=== PATIENT | female | born 1960 | race African-American/Black ===

== ENCOUNTER → 2017-01-28 | Outpatient (CLI) | payer OTHER ==
[~2017-01-28] MED LIST: AMLODIPINE BESY10 MG; APAP650 PO; ARANESP 6060 MCG/0.1 SC; CALCIUM 600 +1 EAC1; CIPRO250 M1 OR; CLONIDINE HCL0.2 M2 PO; CLONIDINE0.1 PO; COMBIPATCH 0.01 EACH TRANSDERM; COZAAR PO; COZAAR100 MG PO; CYMBALTA60 MG PO; DIFLUCAN150 MG PO; DILAUDID2 M1 OR; DILTIAZEM ER120 M1 PO; FLOVENT HFA 1110 MCG INH; FOLIC ACID1 MG PO; GLYCOLAX POWDER17 G1 PO; GLYCOLAX17 GM PO; HYDROCODON-ACE1 EAC7 PO; HYDROXYCHLOROQ200 M1 PO; IBUPROFEN 400400 M1 PO; IBUPROFEN 800800 M1 PO; IBUPROFEN200 M2 PO; IMURAN 50MG TAB50 M1 PO; IRON; IRON PO; JANUVIA25 MG PO; LASIX 20 MG TAB20 MG PO; LEVAQUIN 500 M500 MG PO; LEVEMIR SC; LYRICA 50 MG50 MG PO; MACROBID 100 M100 M1 PO; MINIPRIN81 MG PO; MULTI VITAMIN1 EACH PO; NEURONTIN 400400 M1 PO; NEURONTIN800 MG PO; NEXIUM 40 MG CA40 M1 PO; NEXIUM40 MG PO; NITROFURANTOIN100 MG PO; NORCO 5-325 TA1 EACH PO; NORTRIPTYLINE H25 M3 PO; NORTRIPTYLINE H50 M3 GT; NORVASC10 MG PO; NOVOLOG100 UNIT/1 SC; NUCYNTA100 MG PO; OMEPRAZOLE40 MG PO; OXYCODON-ACETA1 EAC1 PO; STOOL SOFTENER1 EAC2 PO; TORSEMIDE20 MG PO; ULTRAM 50MG TAB50 MG PO; VITAMIN D1000 UNI1 PO; ZANTAC 150MG T150 M1 PO
== END ==
LOC: SLEEPLAB 15:20
DX: G47.33 Obstructive sleep apnea (adult) (pediatric) (principal)

== ENCOUNTER 2017-08-27 04:34 | Inpatient (IN) | payer OTHER ==
[2017-08-27] VITALS (10 sets, daily range): BP systolic 116–220; BP diastolic 67–105
[~2017-08-27] VITALS: Ht 162.6 cm; Wt 72.1 kg
--- NOTE | ~2017-08-27 | P ---
[facility] [place] [address] PROCEDURE REPORT Name: OLAMIDE TAVAREZ Room #: 358-P [facility] IN M.R.#: [id number] Admission: 08/27/17 Attend Phys: Yonas Dixon MD Discharge: Date of : 56 Report #: [id number] THIS REPORT FOR: //name// CC: Luis F Silver MD BRIEF HISTORY: The patient is a 57-year-old woman who presented to [facility] with mental status changes and fatigue with multiple health problems including lupus, prior bleeding gastric ulcers, diabetes, Sjogren's and sleep apnea. She was found to have a hemoglobin of 6 on admission. She has also had a Sandeep-en-Y gastric bypass surgery. In addition, she is on azathioprine for lupus. She also complains of upper abdominal pain, and she reports reflux symptoms. PREOPERATIVE DIAGNOSES: Anemia, abdominal pain and reflux symptoms. POSTOPERATIVE DIAGNOSES: Gastric changes consistent with a previous Sandeep-en-Y gastric bypass surgery with normal mucosa. MEDICATIONS: Deep sedation with propofol per Anesthesia. SPECIMEN: Small bowel biopsies to rule out celiac disease. ESTIMATED BLOOD LOSS: 3 mL. PROCEDURE: EGD with biopsy. FINDINGS: Prior to propofol sedation, procedure of upper endoscopy discussed with the patient as well as potential risks and its complications. She indicates she understands and desires to proceed. DESCRIPTION OF PROCEDURE: With the patient in left lateral decubitus position, a Olympus video endoscope was inserted in the cervical esophagus under direct vision without difficulty. Examination of this organ through its entire length revealed normal esophageal mucosa down the squamocolumnar junction. She reports reflux and burning symptoms, but the squamocolumnar junction is unremarkable. There is no evidence of ulcers, erosions or Rodríguez mucosa. A significant hiatus hernia was not seen. The scope was advanced into the stomach, and there was a very small gastric pouch in view of her previous Sandeep-en-Y gastric bypass surgery. The mucosa of the pouch was normal. No ulcers or bleeding lesions were seen. I was able to retroflex the scope in the pouch and no additional abnormalities were seen. The surgical anastomosis was unremarkable. The small bowel was entered and mucosa was normal. No evidence of bleeding lesions. The scope was advanced its full length into the jejunal limb and no abnormalities were seen. We could not identify the Sandeep-en-Y anastomosis. At that point, [address] [address] PROCEDURE REPORT Name: TAVAREZOLAMIDE Room #: 358-P [facility] IN ..#: [id number] Admission: 08/27/17 Attend Phys: Yonas Dixon MD Discharge: Date of : 56 Report #: [id number] scope was slowly withdrawn and careful circumferential views were obtained. Multiple small bowel biopsies obtained to evaluate for celiac disease. Scope was withdrawn. The patient tolerated the procedure well. DISPOSITION: The patient with previous gastric bypass surgery and above-mentioned symptoms. I do not find evidence of mucosal disease or esophagitis. She reports with the omeprazole, she generally does well and denies reflux and burning symptoms while on omeprazole. Therefore, continue PPI. As far as her anemia, she received 2 units of blood, hemoglobin today is 13.6. In retrospect, drop in hemoglobin may have been a lab error or draw error. She denies having any black stools or bloody stools. She had a colonoscopy in 11/2013. At this point, bleeding does not appear to be an issue, so I do not see the need to pursue further endoscopic examination at this point in time. If there is further evidence of bleeding, proceeding with colonoscopy would be the next step. Also, we will follow up on thiopurine metabolite levels in view of her use of Imuran. If she has continued burning symptoms while on the PPI, addition of sucralfate for nonacidic component of reflux may be helpful. <ELECTRONICALLY SIGNED> By: Zak Guillory MD 08/28/17 1710 1252 1330 Zak Guillory MD /nt
--- NOTE | ~2017-08-27 | PATH ---
[facility] [place] [address] [address] PATHOLOGY RPT PROCEDURE Name: OLAMIDE ENGLISH Room #: 358-P DIS IN M.R.#: [id number] Admission: 08/27/17 Date of : 56 Discharge: 08/30/17 Report #: [id number] Path Case #: [id number] [facility] Accession Number: [id number] . 01 Material submitted: . SMALL BOWEL BX R/O CELIAC . 01 Clinical history: . Pre-Op DX: GERD, Hx of gastric ulcers, anemia Post-OP DX: Gastric changes consistent with gastric bypass . 02 Diagnosis: Small bowel mucosa, small bowel rule out celiac, endoscopic biopsy: - No diagnostic abnormalities present. - Negative for villous blunting or increase in intraepithelial lymphocytes. (IUV:pit 08/30/2017) QTP/08/30/2017 . 02 Electronically signed: . Phyllis Kelly MD, Pathologist NPI- [id number] . 01 Gross description: . Received in formalin labeled "English, [place], small bowel BX, rule out celiac Re anemia," are multiple (more than 10) segments of heart soft tissue measuring 2.1 x 0.6 x 0.2 cm in aggregate dimensions. The specimen is filtered and submitted entirely in cassette A1. (TSD; 08/28/2017) TOB/TOB . 02 Pathologist provided ICD-10: K21.9 . 02 CPT . 571339 Performed at: [address], [place] [id number] MD Matt Martell MD Phone: [phone] Performed at: [address] [id number] MD Phyllis Kelly MD Phone: [phone]
--- NOTE | ~2017-08-27 | HC ---
[facility] [place] [address] CONSULTATION Name: OLAMIDE TAVAREZ Sara Room #: 358-P ADM IN M.R.#: [id number] Admission: 08/27/17 Attend Phys: Yonas Dixon MD Discharge: Date of : 56 Report #: [id number] THIS REPORT FOR: //name// CC: Yonas Bender Box REASON FOR CONSULTATION: Chronic kidney disease. REASON FOR PRESENTATION: Mental status changes, hypoglycemia. HISTORY OF PRESENT ILLNESS: A 57-year-old with past medical history of chronic kidney disease with a baseline creatinine of around 2.5. She sees Dr. Miller. She is also known to have diabetes mellitus, hypertension, lupus, prior gastric bypass surgery. She has not been feeling well and was brought to the Emergency Room because of fatigue, mental status changes and a blood sugar of 33 upon arrival. I am consulted to manage her chronic kidney disease. She was found to be anemic. From the renal perspective, the patient used to follow up with Dr. Miller in our clinic. She has a very stable chronic kidney disease for the last few years with a creatinine running around 2-2.5. For unclear reasons, her creatinine had been worsening lately. She has seen somebody in [place] and was told that her creatinine has been creeping up and that she needs to start dialysis. She tells me that she was recently started on couple of diuretics including a thiazide diuretic and Bumex. This was due to lower extremity edema. She thinks that the deterioration of her condition was related to those medications. She was told that she will need a fistula placed and she needs to start dialysis soon. When she presented yesterday, she had some issues with electrolytes. She denies nonsteroidal anti-inflammatory medications. She denies any other changes in her medications. No nausea or vomiting. Her lower extremity edema has significantly subsided. PAST MEDICAL HISTORY: 1. Chronic kidney disease with a baseline creatinine of around 2.5. 2. Diabetes mellitus. 3. SLE. 4. Obstructive sleep apnea. 5. Hypertension. 6. Peripheral neuropathy. ALLERGIES: CODEINE. SOCIAL HISTORY: No drug or alcohol abuse. FAMILY HISTORY: Autoimmune disorders and dialysis run in the family. MEDICATIONS: Currently, the patient is maintained on the followin. Hydroxychloroquine. 2. Clonidine. [address] [address] CONSULTATION Name: OLAMIDE TAVAREZ Room #: 358-P [facility] IN .R.#: [id number] Admission: 08/27/17 Attend Phys: Yonas Dixon MD Discharge: Date of : 56 Report #: [id number] 3. Carvedilol. 4. Aspirin. 5. Bumex. 6. Chlorthalidone. 7. Calcium carbonate. 8. Calcitriol. 9. Imuran. REVIEW OF SYSTEMS: GENERAL: Significant for weakness. CARDIOVASCULAR: No chest pain, no palpitation. PULMONARY: No cough or hemoptysis. GASTROINTESTINAL: Decreased p.o. intake. GENITOURINARY: No frequency, no urgency. MUSCULOSKELETAL: Occasional myalgias. NEUROLOGICAL: As per the history of present illness. PHYSICAL EXAMINATION: VITAL SIGNS: Blood pressure is markedly elevated at 231/109, temperature 36.9. HEAD AND NECK: No jugular venous distention, no bruit, no thyromegaly. CHEST: Clear to auscultation bilaterally. CARDIOVASCULAR: Regular with no rub detected. ABDOMEN: Soft, nontender. LOWER EXTREMITIES: No edema. LABORATORY VALUES: Reviewed. Hemoglobin is up to 13.7 from a value of 6. Potassium is 5.4, BUN is 45, creatinine is 3. UA is not remarkable. Head CT negative. Abdomen and pelvic CT reviewed, no acute abnormality. She does have multiple cysts on the kidneys. ASSESSMENT, IMPRESSION AND PLAN: 1. Acute kidney injury. 2. Chronic kidney disease. 3. Anemia. 4. Hyperkalemia. 5. Hypocalcemia. 6. Source of the deterioration in the patient's kidney function is not clear to us. As of this moment, I will wait for her kidney numbers to settle down. She does not have any edema and I will hold her chlorthalidone and Bumex. Electrolytes were replaced yesterday. Calcium is better. I will resume her [facility] [address] [place] [address] CONSULTATION Name: OLAMIDE TAVAREZ Sara Room #: 358-P ADM IN M.R.#: [id number] Admission: 08/27/17 Attend Phys: Yonas Dixon MD Discharge: Date of : 56 Report #: [id number] calcium and keep her on calcitriol for now Blood pressure is markedly elevated and I will make the necessary adjustments for her blood pressure medications. Continue Imuran for her lupus. Watch blood sugar. Adjust Zovirax dose to her GFR. Discontinue IV fluid. We will continue to follow along. <ELECTRONICALLY SIGNED> By: Jcarlos Grubbs MD 08/28/17923 9 9 Jcarlos Grubbs MD /nt
[2017-08-27] MEDS ORDERED: CHLORTHALIDONE25 MG PO (05:11)
[2017-08-27] MEDS ORDERED: BUMETANIDE0.25 MG/1 PO (05:13)
[2017-08-27 05:14] LABS: ABSOLUTE NEUTROPHILS 1.8 thou/uL (1.4-8.2); LYMPHOCYTES 34.5 % (24.0-44.0); WBC 3.3 thou/uL (4.0-11.0)
[2017-08-27] MEDS ORDERED: ACYCLOVIR 400400 MG PO (05:14)
[2017-08-27] MEDS ORDERED: ASPIR 8181 MG PO (05:14)
[2017-08-27] MEDS ORDERED: PERCOCET 10-321 EACH PO (05:15)
[2017-08-27 05:16] LABS: BASOPHILS 0.8 % (0.0-2.0); EOSINOPHILS 1.4 % (0.0-3.0); MCH 34.4 pg (26.0-34.0); MCHC 33.7 g/dL (28.0-37.0); MCV 102.1 fL (80.0-100.0); MONOCYTES 8.8 % (1.0-8.0); PLATELET COUNT 95 thou/uL (150-400); POLYS 54.5 % (36.0-66.0); RBC 1.75 mil/uL (4.20-5.00); RDW 13.9 % (10.5-14.5)
[2017-08-27] MEDS ORDERED: CARVEDILOL12.5 MG PO (05:16)
[2017-08-27] MEDS ORDERED: LYRICA 75 MG CA75 MG PO (05:16)
[2017-08-27 05:17] LABS: ANION GAP 8 mmol/L (7-16); BUN 44 mg/dL (7-18); CHLORIDE 114 mmol/L (98-107); CO2 21 mmol/L (21-32); CREATININE 2.5 mg/dL (0.6-1.0); GLUCOSE 63 mg/dL (74-106); SODIUM 143 mmol/L (136-145)
[2017-08-27] MEDS ORDERED: CALCITRIOL0.25 MCG PO (05:17)
[2017-08-27] MEDS ORDERED: SINGULAIR 10 MG10 MG PO (05:18)
[2017-08-27] MEDS ORDERED: NIFEDIPINE ER90 M1 PO (05:18)
[2017-08-27 05:21] LABS: HEMATOCRIT 17.9 % (37.0-47.0)
[2017-08-27 05:23] LABS: ALBUMIN 1.8 g/dL (3.4-5.0); DIRECT BILIRUBIN < 0.1 mg/dL (<0.1-0.3); LIPASE 177 U/L (73-393); SGOT 20 U/L (15-37); SGPT 16 U/L (30-65); TOTAL BILIRUBIN 0.2 mg/dL (<0.1-1.0); TOTAL PROTEIN 4.6 g/dL (6.4-8.2)
[2017-08-27 05:24] LABS: POTASSIUM 2.3 mmol/L (3.5-5.1)
[2017-08-27 05:25] LABS: CALCIUM 5.2 mg/dL (8.5-10.1)
[2017-08-27 05:57] LABS: LARGE PLATELETS OCCASIONAL; MICROCYTES 1+; PLATELET ESTIMATE DECREASED
[2017-08-27 05:58] LABS: ANISOCYTOSIS 1+; HYPOCHROMASIA 1+
[2017-08-27 07:11] LABS: URINE BILIRUBIN NEGATIVE (Negative); URINE BLOOD NEGATIVE (Negative); URINE CLARITY CLEAR; URINE COLOR YELLOW; URINE GLUCOSE-RANDOM* NEGATIVE (Negative); URINE KETONES NEGATIVE (Negative); URINE LEUKOCYTES-REFLEX TRACE (Negative); URINE NITRITE-REFLEX NEGATIVE (Negative); URINE PROTEIN (DIPSTICK) NEGATIVE (Negative); URINE SPECIFIC GRAVITY <= 1.005 (1.005-1.035); URINE UROBILINOGEN 0.2 E.U./dl (0.2-1.0)
[2017-08-27 10:58] LABS: CHOLESTEROL 178 mg/dL (<200); HDL CHOLESTEROL 80 mg/dL (>40); LDL CHOLESTEROL 87 mg/dL (<100); TC:HDL 2.2 Ratio (Not establshd); TRIGLYCERIDE 57 mg/dL (<150); VLDL 11 mg/dL (<40)
[2017-08-27 11:00] LABS: CALCIUM 8.6 mg/dL (8.5-10.1); CREATININE 3.7 mg/dL (0.6-1.0); PHOSPHORUS 3.3 mg/dL (2.5-4.9)
[2017-08-27 11:31] LABS: TSH 0.453 uIU/mL (0.358-3.740)
[2017-08-27 23:04] LABS: HEMATOCRIT 40.7 % (37.0-47.0)
[2017-08-27 23:18] LABS: % SATURATION 86 % (20-39); IRON 174 ug/dL (50-170); TIBC 203 ug/dL (250-450)
[2017-08-28] VITALS (7 sets, daily range): BP systolic 113–231; BP diastolic 69–115
[2017-08-28 02:21] LABS: GLYCOHEMOGLOBIN (HGB A1C) 5.1 % (4.8-5.6)
[2017-08-28 06:14] LABS: MCHC 34.7 g/dL (28.0-37.0)
[2017-08-28 06:16] LABS: HEMATOCRIT 39.4 % (37.0-47.0); HEMOGLOBIN 13.7 gm/dL (12.0-15.0); MCH 33.8 pg (26.0-34.0); MCV 97.3 fL (80.0-100.0); RBC 4.05 mil/uL (4.20-5.00); RDW 14.8 % (10.5-14.5); WBC 10.4 thou/uL (4.0-11.0)
[2017-08-28 06:26] LABS: POTASSIUM 5.4 mmol/L (3.5-5.1)
[2017-08-28 06:28] LABS: CALCIUM 8.8 mg/dL (8.5-10.1)
[2017-08-28 08:44] LABS: URINE CREATININE-RANDOM* 45.3 mg/dL
[2017-08-28 19:14] LABS: COMPLEMENT-C3 88 mg/dL (82-167); COMPLEMENT-C4 24 mg/dL (14-44)
[2017-08-29 04:00] VITALS: BP 127/62
[2017-08-29 05:41] LABS: ABSOLUTE NEUTROPHILS 3.3 thou/uL (1.4-8.2); BASOPHILS 1.7 % (0.0-2.0); EOSINOPHILS 1.7 % (0.0-3.0); HEMATOCRIT 37.5 % (37.0-47.0); HEMOGLOBIN 12.8 gm/dL (12.0-15.0); LYMPHOCYTES 31.8 % (24.0-44.0); MCH 33.8 pg (26.0-34.0); MCHC 34.2 g/dL (28.0-37.0); MCV 98.8 fL (80.0-100.0); MONOCYTES 5.7 % (1.0-8.0); PLATELET COUNT 159 thou/uL (150-400); POLYS 59.1 % (36.0-66.0); RBC 3.79 mil/uL (4.20-5.00); RDW 14.8 % (10.5-14.5); WBC 5.6 thou/uL (4.0-11.0)
[2017-08-29 05:54] LABS: ALBUMIN 3.2 g/dL (3.4-5.0); CALCIUM 8.6 mg/dL (8.5-10.1); CREATININE 3.2 mg/dL (0.6-1.0); PHOSPHORUS 3.2 mg/dL (2.5-4.9)
[2017-08-29 07:21] VITALS: BP 123/62
[2017-08-29 11:44] VITALS: BP 119/69
[2017-08-29 16:00] VITALS: BP 138/81
[2017-08-29 19:27] VITALS: BP 139/88
[2017-08-30 03:44] VITALS: BP 139/85
[2017-08-30 06:01] LABS: ALBUMIN 3.1 g/dL (3.4-5.0); CALCIUM 8.7 mg/dL (8.5-10.1); CREATININE 3.3 mg/dL (0.6-1.0); PHOSPHORUS 4.3 mg/dL (2.5-4.9)
[2017-08-30 07:47] VITALS: BP 145/83
[2017-08-30 11:40] VITALS: BP 136/87
[2017-08-30 12:02] VITALS: BP 136/87
[2017-08-30] MEDS ORDERED: GLUCOMETER ×3 (13:33→15:31)
== END 2017-08-30 14:17 | disposition home or self-care (01) | DRG 682 ==
LOC: ER 04:34 → EROBS 06:43 → 3W 06:43 → ENTRNSPT 08-30 14:12 → EDTRNSPTSTS 08-30 14:15 → 3W 08-30 14:17
PROVIDERS: Emergency Medicine; Hospitalist; Internal Medicine; Nurse Practitioner; Nurse Practitioner Acute Care; Specialist
PROC: 30233N1 Transfusion of Nonautologous Red Blood Cells into Peripheral Vein, Percutaneous Approach (ICD-10-PCS; principal; 2017-08-27)
PROC: 0DB88ZX Excision of Small Intestine, Via Natural or Artificial Opening Endoscopic, Diagnostic (ICD-10-PCS; 2017-08-28)
DX: I12.9 Hypertensive chronic kidney disease with stage 1 through stage 4 chronic kidney disease, or unspecified chronic kidney disease (principal); E43 Unspecified severe protein-calorie malnutrition; N17.9 Acute kidney failure, unspecified; E11.649 Type 2 diabetes mellitus with hypoglycemia without coma; E87.5 Hyperkalemia; E11.42 Type 2 diabetes mellitus with diabetic polyneuropathy; K21.9 Gastro-esophageal reflux disease without esophagitis; M19.90 Unspecified osteoarthritis, unspecified site; F32.9 Major depressive disorder, single episode, unspecified; D64.9 Anemia, unspecified; E83.51 Hypocalcemia; E87.6 Hypokalemia; G47.33 Obstructive sleep apnea (adult) (pediatric); N18.9 Chronic kidney disease, unspecified; M35.00 Sjogren syndrome, unspecified; M32.9 Systemic lupus erythematosus, unspecified; E66.9 Obesity, unspecified; Z68.27 Body mass index [BMI] 27.0-27.9, adult; Z80.0 Family history of malignant neoplasm of digestive organs; Z90.722 Acquired absence of ovaries, bilateral; Z88.6 Allergy status to analgesic agent; Z88.8 Allergy status to other drugs, medicaments and biological substances; Z83.2 Family history of diseases of the blood and blood-forming organs and certain disorders involving the immune mechanism; Z79.82 Long term (current) use of aspirin; Z79.899 Other long term (current) drug therapy
CPT/HCPCS: 10779; 62110; 62900; 70005

== ENCOUNTER 2018-04-07 15:24 | Inpatient (IN) | payer OTHER ==
[~2018-04-07] VITALS: Ht 162.6 cm; Wt 77.6 kg
[~2018-04-07 15:24] MED LIST changes: +ACYCLOVIR 400400 MG PO; +ASPIR 8181 MG PO; +BUMETANIDE0.25 MG/1 PO; +CALCITRIOL0.25 MCG PO; +CARVEDILOL12.5 MG PO; +CHLORTHALIDONE25 MG PO; +GLUCOMETER; +LYRICA 75 MG CA75 MG PO; +NIFEDIPINE ER90 M1 PO; +PERCOCET 10-321 EACH PO; +SINGULAIR 10 MG10 MG PO
[2018-04-07 16:07] VITALS: BP 120/66
[2018-04-07 19:37] LABS: BASOPHILS 0.8 % (0.0-2.0); EOSINOPHILS 1.5 % (0.0-3.0); HEMATOCRIT 30.2 % (37.0-47.0); HEMOGLOBIN 10.3 gm/dL (12.0-15.0); LYMPHOCYTES 31.4 % (24.0-44.0); MCH 34.7 pg (26.0-34.0); MCHC 34.2 g/dL (28.0-37.0); MCV 101.2 fL (80.0-100.0); MONOCYTES 8.5 % (1.0-8.0); PLATELET COUNT 162 thou/uL (150-400); POLYS 57.8 % (36.0-66.0); RBC 2.99 mil/uL (4.20-5.00); RDW 15.1 % (10.5-14.5); WBC 5.2 thou/uL (4.0-11.0)
[2018-04-07 19:43] LABS: CALCIUM 9.8 mg/dL (8.5-10.1); CREATININE 3.5 mg/dL (0.6-1.0); POTASSIUM 4.8 mmol/L (3.5-5.1)
[2018-04-07] MEDS ORDERED: PREDNISOLONE ACE5 ML OPHTHALMIC (22:57)
[2018-04-07] MEDS ORDERED: ZIRGAN5 GM (22:58)
[2018-04-07] MEDS ORDERED: ASPIR 8181 MG PO (22:58)
[2018-04-07] MEDS ORDERED: AMBIEN 5 MG TABL5 M1 PO (22:59)
[2018-04-07 23:01] VITALS: BP 138/71
[2018-04-07 23:36] VITALS: BP 139/69
[2018-04-08 03:31] LABS: CALCIUM 8.3 mg/dL (8.5-10.1); CREATININE 3.2 mg/dL (0.6-1.0); POTASSIUM 4.8 mmol/L (3.5-5.1)
[2018-04-08 04:02] LABS: HEMATOCRIT 25.3 % (37.0-47.0); HEMOGLOBIN 8.6 gm/dL (12.0-15.0); MCH 34.1 pg (26.0-34.0); MCHC 33.9 g/dL (28.0-37.0); MCV 100.5 fL (80.0-100.0); RBC 2.51 mil/uL (4.20-5.00); RDW 15.2 % (10.5-14.5); WBC 3.6 thou/uL (4.0-11.0)
[2018-04-08 04:16] VITALS: BP 146/69
--- NOTE | 2018-04-08 05:23 | NUR ---
PT WAS ADMITTED TO THE UNIT FROM THE ER IN A STABLE CONDITION.PT HAS CONGESTED COUGH,HAS BEEN COUGHING CONSTANTLY SINCE ADMIT.ADMISSION HX,EDUCATION AND ASSESSMENT COMPLETED.DIALYSIS GRAFT TO HER L UPPER ARM,LIMB ALERT IN PLACE.UP ADLIB TO THE BSC.RT TX NEEDED.CPAP NEEDED AT HS.IVF ORDERED.CALL LIGHT WITHIN REACH.
[2018-04-08 07:45] VITALS: BP 187/92
--- NOTE | 2018-04-08 12:11 | NUR ---
PATIENT BEING TRANSFERRED TO [facility], ROOM 223. REPORT GIVEN TO Silva ALEXANDER, BY THIS NURSE AT 11:45. PATIENT'S SISTER, PATTI, IS CURRENTLY WITH PATIENT, ASSISTING PATIENT WITH ADL'S. TRANSPORT BEING CONTACTED FOR TRANSFER.
--- NOTE | 2018-04-08 13:05 | NUR ---
ASSESSMENT-PT LIVES AT HOME WITH HER SISTER. PT HAS BEEN WALKING ON HER OWN AND DOING HER OW ADLS. SISTER DOES MOST OF THE COOKING. CLEANING AND LAUNDRY. SISTER AND SON AT THE BEDSIDE. PT HAS A WALKER AT HOME BUT HAS NOT BEEN USING IT. PT HAS A C-PAP AT HOME. PT SAYS SHE HAS NOT HAD ANY HH SERVICES IN THE PAST. FOLLOWING TO ASSIST WITH DC PLANNING. PT VOICES NO CONCERNS RELATED TO DC AT THIS TIME.
[2018-04-08 14:40] VITALS: BP 171/88
--- NOTE | 2018-04-08 16:41 | NUR ---
REPORT RECIEVD FROM KARMA Callejas THIS AFTERNOON. PT ARRIVED TO UNIT AROUND 1430. .A/O X 4, C/O PAIN TO BILAT LOWER EXT PAIN, PRN NORCO GIVEN. ALSO TESSALON GIVEN FOR COUGH. PT SLEEPING THIS AFTERNOON WITH NAD NOTED. NASAL SWAB SENT TO LAB. NOTIFIED PRIMARY REGARDING BP READINGS AND COUGH. STATES WILL LOOK OVER MEDS. PT CALM COOPERATIVE, NAD NOTED. RESTING WITH EYES CLOSED. WILL CONT TO MONITOR AND FOLLOW POC.
[2018-04-08 18:29] VITALS: BP 134/64
--- NOTE | 2018-04-09 03:47 | NUR ---
Pt A/OX4,VSS.Up with SBA/RW to bathroom. Voiding without any difficulties voiced.C/o BLE pain,medicated with [place] with relief reported. Pt has a congested productive cough,reports a little phlegm and it hurts when she coughs,breathing Tx administered by RT as ordered. Has a fistula on LUE,not currently on dialysis;bruit and thrill present.Right hand SL patent,abts administered per EMAR.Pt resting with eyes closed,no distress at this time.Will continue to monitor pt.Call light/personal items placed within reach and pt re-educated on fall safety d/t pain/sleep meds verbalizes understanding. Will continue to monitor pt.
[2018-04-09 06:18] LABS: HEMATOCRIT 28.9 % (37.0-47.0); HEMOGLOBIN 9.7 gm/dL (12.0-15.0); MCHC 33.5 g/dL (28.0-37.0); MCV 101.4 fL (80.0-100.0); RBC 2.85 mil/uL (4.20-5.00); RDW 15.6 % (10.5-14.5); WBC 3.4 thou/uL (4.0-11.0)
[2018-04-09 06:28] LABS: CALCIUM 9.3 mg/dL (8.5-10.1); CREATININE 2.5 mg/dL (0.6-1.0); POTASSIUM 4.5 mmol/L (3.5-5.1)
[2018-04-09 08:00] VITALS: BP 163/67
--- NOTE | 2018-04-09 17:41 | NUR ---
PATIENT CARE WAS ASSUMED AT 0715.PATIENT IS ALERT AND ORIENTED X4.PATIENT HAS NO COMPLAINS OF PAIN AT THIS TIME.PATIENT HAS BEEN SLEEP THROUGH BREAKFAST, WILL SAVE TRAY.IV IS INTACT AND SALINE LOCKED.PT HAS CALL LIGHT,PHONE, AND PERSONAL BELONGINGS WITHIN REACH.
[2018-04-09 18:16] VITALS: BP 144/82
--- NOTE | 2018-04-10 07:49 | NUR ---
Pt A/OX4,up with SBA/RW to BR.C/o pain to BLE/neuropathy medicated with [place] with some relief reported.Has a congested cough,denies SOA. VSS. Fistula in place on LUE bruit/thrill present.Voiding without difficulties. Restin quietly with eyes closed.
[2018-04-10 10:12] VITALS: BP 129/59
--- NOTE | 2018-04-10 10:20 | NUR ---
SW reviewed chart and spoke with nursing. Pt was [facility] to [facility] from and is progressing towards goals for discharge. SW met with pt at bedside to discuss discharge plan. Pt denies having any SW discharge needs. Pt has a walker and CPAP at home. SW is following to assist as needed with discharge planning.
[2018-04-10 17:19] VITALS: BP 131/59
--- NOTE | 2018-04-10 20:05 | NUR ---
ASSUMED CARE OF PATIENT AT 0715, PATIENT ALERT AND ORIENTED X 4. UP AD DEDRICK IN HER ROOM. PATIENT C/O PAIN WITH BILATERAL LEGS/FEET. DR MILLER HERE TODAY AKSED FOR MORE PAIN MEDS AND STOOL SOFTNER, NEW ORDER FOR HYDROCODONE 10/325 EVERY 4 HOURS AND COLACE BID/PRN. PATIENT GIVEN HYDROCODONE X 2 THIS SHIFT, PATIENT STATES NO PAIN RELIEF, WILL F/U IN AM FOR NEW ORDER FOR PAIN MEDS. PATIENT HAS IV RIGHT HAND, RECEIVED IV ANTIBIOTIC X 1 THIS SHIFT. WILL CONTINUE TO MONITOR.
[2018-04-10 21:35] VITALS: BP 124/70
--- NOTE | 2018-04-11 05:50 | NUR ---
Pt A/OX4.Up ad myriam without any problems. C/o pain to BLE,medicated with [place] 10mg at HS with relief reported.VSS.Tessalon michelle given at HS with relief reported,less coughing noted. Fistula in place LUE,bruit/thrill present. Resting with eyes closed no distress noted,pt encouraged to call for help as needed. Call light/personal items within reach.
[2018-04-11 07:09] LABS: HEMATOCRIT 30.4 % (37.0-47.0); HEMOGLOBIN 10.3 gm/dL (12.0-15.0); MCH 34.2 pg (26.0-34.0); MCHC 33.8 g/dL (28.0-37.0); MCV 101.1 fL (80.0-100.0); RBC 3.01 mil/uL (4.20-5.00); WBC 4.2 thou/uL (4.0-11.0)
[2018-04-11 07:16] LABS: CREATININE 2.9 mg/dL (0.6-1.0); POTASSIUM 4.9 mmol/L (3.5-5.1)
[2018-04-11 08:00] VITALS: BP 135/76
--- NOTE | 2018-04-11 10:36 | NUR ---
DISCHARGE NOTE: SW reviewed chart and spoke with nursing. Pt is medically stable for discharge home today. SW met with pt at bedside to discuss discharge plan. Pt is aware and agreeable with plan. Pt requests info regarding applying for Medicaid. SW offered to make referral to [facility] for information. Pt agreeable with referral. Pt's family will provide transportation home later today. No SW discharge needs identified at this time, but is available to assist should needs arise.
[2018-04-11] MEDS ORDERED: TESSALON PERLE100 MG PO (13:08)
[2018-04-11] MEDS ORDERED: CEFUROXIME500 MG PO (13:08)
--- NOTE | 2018-04-11 13:58 | NUR ---
ASSUMED CARE OF PATIENT AT 0715, PATIENT ALERT AND ORIENTED X 4. PATIENT UP AD DEDRICK. PATIENT C/O PAIN WITH BILATERAL FEET, SHE STATES PAIN LEVEL BETTER TODAY. PATIENT STILL HAS CONGESTED COUGH, NON-PRODUCTIVE. BILATERAL LUNGS CLEAR/DIMINISHED. PATIENT HAS RIGHT HAND IV IN PLACE, FLUSHED WITH NS AND REMAINS PATENT. DR MILLER HERE THIS AM TO SEE PATIENT, PATIENT WILL DISCHARGE TO HOME TODAY. BLOOD SUGAR MONITORING ORDERED. WILL CONTINUE TO MONITOR UNTIL DISCHARGED.
[2018-04-11] MEDS ORDERED: VENTOLIN HFA 1818 GM INH (14:45)
[2018-04-11 15:03] VITALS: BP 135/76
[2018-04-12 11:12] LABS: ADENOVIRUS Negative (Negative); INFLUENZA B Negative (Negative); PARAINFLUENZA 1 Negative (Negative); PARAINFLUENZA 2 Negative (Negative); RHINOVIRUS Negative (Negative); RSV A Negative (Negative)
[2018-04-15 09:06] LABS: INFLUENZA A Negative (Negative); METAPNEUMOVIRUS Negative (Negative); PARAINFLUENZA 3 Negative (Negative); RSV B Negative (Negative)
== END 2018-04-11 15:32 | disposition home or self-care (01) | DRG 871 ==
LOC: ER 15:24 → 4E 20:35 → EROBS 20:35 → SICU 20:35 → 4E 23:02 → SICU 04-08 14:15 → ENTRNSPT 04-11 15:17 → SICU 04-11 15:32 → CMPTRNSPT 04-11 15:36
PROVIDERS: Nurse Practitioner Acute Care; Student in an Organized Health Care Education/Training Program; ADMIT Hospitalist
PROC: 5A09357 Assistance with Respiratory Ventilation, Less than 24 Consecutive Hours, Continuous Positive Airway Pressure (ICD-10-PCS; principal; 2018-04-07)
DX: A41.9 Sepsis, unspecified organism (principal); J18.1 Lobar pneumonia, unspecified organism; N18.4 Chronic kidney disease, stage 4 (severe); E11.42 Type 2 diabetes mellitus with diabetic polyneuropathy; K21.9 Gastro-esophageal reflux disease without esophagitis; I12.9 Hypertensive chronic kidney disease with stage 1 through stage 4 chronic kidney disease, or unspecified chronic kidney disease; E11.22 Type 2 diabetes mellitus with diabetic chronic kidney disease; M32.9 Systemic lupus erythematosus, unspecified; M19.90 Unspecified osteoarthritis, unspecified site; F32.9 Major depressive disorder, single episode, unspecified; Z98.84 Bariatric surgery status; Z90.722 Acquired absence of ovaries, bilateral; Z88.6 Allergy status to analgesic agent; Z88.8 Allergy status to other drugs, medicaments and biological substances; Z79.82 Long term (current) use of aspirin; Z79.899 Other long term (current) drug therapy
CPT/HCPCS: 10084; 15000

== ENCOUNTER → 2018-08-19 | Outpatient (CLI) | payer OTHER ==
[~2018-08-19] MED LIST changes: +AMBIEN 5 MG TABL5 M1 PO; +CEFUROXIME500 MG PO; +PREDNISOLONE ACE5 ML OPHTHALMIC; +TESSALON PERLE100 MG PO; +VENTOLIN HFA 1818 GM INH; +ZIRGAN5 GM
== END ==
LOC: BC 11:20
DX: Z12.31 Encounter for screening mammogram for malignant neoplasm of breast (principal)

== ENCOUNTER → 2018-10-21 | Outpatient (CLI) | payer OTHER ==
[~2018-10-21] VITALS: Ht 162.6 cm; Wt 70.3 kg
[~2018-10-21] MED LIST changes: +ALBUTEROL2.5 MG/31 INH; +ESZOPICLONE3 MG PO; +TRAZODONE HCL50 MG PO; -ZIRGAN5 GM; +ZIRGAN5 GM OPHTHALMIC
[2018-10-21 07:23] LABS: CALCIUM 9.5 mg/dL (8.5-10.1); CREATININE 3.5 mg/dL (0.6-1.0); POTASSIUM 4.3 mmol/L (3.5-5.1)
[2018-10-21 07:29] LABS: ALBUMIN 3.6 g/dL (3.4-5.0); TOTAL BILIRUBIN 0.3 mg/dL (<0.1-1.0); TOTAL PROTEIN 8.5 g/dL (6.4-8.2)
--- NOTE | 2018-10-22 15:37 | P ---
[facility] [place] [address] PROCEDURE REPORT Name: DAYSIOLAMIDE Sara [id number] Admission: 10/21/18 ������������������ Attend Phys: Zak Guillory MD Discharge: ������������������ Date of : 56 Report #: [id number] THIS REPORT FOR: //name// CC: Zak SOLORZANO BOX Napoleon Box DATE OF SERVICE: 10/21/2018 BRIEF HISTORY: The patient is a 58-year-old woman with chronic kidney disease, on hemodialysis, who is participating in a kidney transplant in the near future for screening. In addition, there is a history of colon cancer in a grandparent. In addition, she has lupus and has been on chronic immunosuppression. PREOPERATIVE DIAGNOSIS: High risk screening. POSTOPERATIVE DIAGNOSIS: Normal colonoscopy to terminal ileum. MEDICATIONS: Deep sedation with propofol for anesthesia. SPECIMEN: None. ESTIMATED BLOOD LOSS: None. PROCEDURE: Colonoscopy to cecum and terminal ileum. FINDINGS: Prior to propofol sedation, procedure of colonoscopy discussed with the patient as well as potential risks and its complications. She indicates she understands and desires to proceed. DESCRIPTION OF PROCEDURE: With the patient in left lateral decubitus position, digital examination was completed, which revealed no abnormalities. Subsequently, the Olympus video colonoscope was introduced in the rectum, advanced under direct vision to the cecum. It was done with minimal difficulty. The cecum was identified by the ileocecal valve and the appendiceal orifice. I was able to visualize the distal segment of terminal ileum, which was inspected and noted to be unremarkable. At that point, the scope was slowly withdrawn and careful circumferential views were obtained. Upon slow withdrawal of the scope, the mucosa was inspected. There were some limitations of the prep, more so in the proximal colon and distal colon. There was some liquidy material coating some of the mucosa. However, with extensive lavage seen upon withdrawal of the scope, and suctioning, we were able to overall obtain a good prep. The mucosa was within normal limits, normal vascular pattern, normal light reflex. As we withdrew the scope, no neoplastic lesions were seen. She had normal mucosa throughout. The scope was withdrawn in the rectum, no abnormalities were seen. [facility] [address] [place] [address] PROCEDURE REPORT Name: OLAMIDE TAVAREZ Room #: [facility].#: [id number] Admission: 10/21/18 ������������������ Attend Phys: Zak Guillory MD Discharge: ������������������ Date of : 56 Report #: [id number] Upon retroflexion, no abnormalities were seen. Scope was withdrawn. The patient tolerated the procedure well. CONDITION OF THE PATIENT UPON DISCHARGE: Following procedure, the patient drowsy, aroused, conversant and will be discharged home when fully ambulatory. INSTRUCTIONS TO THE PATIENT AND FAMILY AT THE TIME OF DISCHARGE: No neoplastic lesions were seen. She will return to the care of Dr. Napoleon Silver and follow up with the Transplant Unit at [facility]. In view of her comorbidities, family history suggests followup colon exam in 5 years. Last colonoscopy was nearly 5 years ago. Withdrawal time from cecum was 17 minutes 49 seconds. ��������������������������������������������� <ELECTRONICALLY SIGNED> ���������������������������������������� By: Zak Guillory MD ��������������������������������������������� 10/22/18 1537 Zak Guillory MD /nt
== END | disposition home or self-care (01) ==
LOC: GI 06:12
PROVIDERS: Specialist
DX: Z12.11 Encounter for screening for malignant neoplasm of colon (principal); E11.22 Type 2 diabetes mellitus with diabetic chronic kidney disease; I12.0 Hypertensive chronic kidney disease with stage 5 chronic kidney disease or end stage renal disease; N18.6 End stage renal disease; F41.9 Anxiety disorder, unspecified; F32.9 Major depressive disorder, single episode, unspecified; G62.9 Polyneuropathy, unspecified; G47.30 Sleep apnea, unspecified; D64.9 Anemia, unspecified; K21.9 Gastro-esophageal reflux disease without esophagitis; M19.90 Unspecified osteoarthritis, unspecified site; Z99.2 Dependence on renal dialysis; Z88.8 Allergy status to other drugs, medicaments and biological substances; Z79.899 Other long term (current) drug therapy; Z79.82 Long term (current) use of aspirin
CPT/HCPCS: 62110; 62900

== ENCOUNTER → 2019-12-26 | Outpatient (CLI) | payer OTHER | LOC: LAB 12-25 08:25 | PROVIDERS: ATTEND Pediatrics | DX: Z01.812 Encounter for preprocedural laboratory examination (principal); Z20.828 Contact with and (suspected) exposure to other viral communicable diseases ==

== ENCOUNTER → 2021-03-07 | Outpatient (CLI) | payer OTHER | LOC: BC 14:33 | PROVIDERS: ATTEND Internal Medicine Rheumatology | DX: Z12.31 Encounter for screening mammogram for malignant neoplasm of breast (principal) ==